=== PATIENT | female | born 1955 | race Caucasian/White ===

== ENCOUNTER 2017-03-14 12:27 | Observation (INO) | payer SELFPAY ==
[2017-03-14] VITALS (8 sets, daily range): BP systolic 158–174; BP diastolic 78–98; PULSE 75–89; RESP 16–20; TEMP 98–98.1; O2SAT 94–99
[~2017-03-14] VITALS: Ht 167.6 cm; Wt 92.0 kg
[~2017-03-14 12:27] MED LIST: BENZ100 PO; PRED20 PO; ZITH250T PO
[2017-03-14] MEDS ORDERED: ASPIRIN 325 MG TAB PO ONE (12:45)
[2017-03-14] MEDS ORDERED: SODIUM CHLORIDE 0.9% FLUSH 10 ML FLUSH IVF PRN (12:45)
--- NOTE | 2017-03-14 12:53 | PD ---
HPI Chief Complaint: Neuro Symptoms/ Deficits Time Seen by Provider: 12:43 Travel History International Travel<30 days: No Contact w/Intl Traveler<30days: No Traveled to known affect area: No History of Present Illness HPI Patient presents with complaints of left occipital headache for 3 days with onset of right facial drooping yesterday afternoon(20 hours ago). Denies extremity weakness. Admits to slurred speech. Denies any recent illness. Nondiabetic. She is a smoker. Positive family history for cardiac disease. No personal history of cardiac disease. PFSH Past Medical History Arthritis: No Blood Disorders: No Cancer: No Cardiovascular Problems: No Chemotherapy: No Cerebrovascular Accident: No Endocrine: No Genitourinary: No Headaches: No Immune Disorder: No Musculoskeletal: Yes Neurologic: Yes (SEIZURES) Psychiatric: No Reproductive: No Respiratory: No Migraines: No Radiation Therapy: No Seizures: Yes Past Surgical History AICD: No Arteriovenous Shunt: No Insulin Pump: No Joint Replacement: No Pacemaker: No Social History Alcohol Use: Yes ("COUPLE TIMES PER WEEK") Tobacco Use: Yes ("WHEN I DRINK") Substance Use: Yes Allergies-Medications (Allergen,Severity, Reaction): Coded Allergies: No Known Allergies (Verified , 12/30/14) Reported Meds & Prescriptions Reported Meds & Active Scripts Active Reported Amlodipine (Amlodipine Besylate) 5 Mg Tab 5 Mg PO DAILY Review of Systems General / Constitutional: No: Fever Eyes: No: Visual changes HENT: No: Headaches Cardiovascular: No: Chest Pain or Discomfort Respiratory: No: Shortness of Breath Gastrointestinal: No: Abdominal Pain Genitourinary: No: Dysuria Musculoskeletal: No: Pain Skin: No Rash Neurologic: No: Weakness Psychiatric: No: Depression Endocrine: No: Polydipsia Hematologic/Lymphatic: No: Easy Bruising Physical Exam Narrative GENERAL: [-] SKIN: Focused skin assessment warm/dry. HEAD: Atraumatic. Normocephalic. EYES: Pupils equal and round. No scleral icterus. No injection or drainage. ENT: No nasal bleeding or discharge. Mucous membranes pink and moist. NECK: Trachea midline. No JVD. CARDIOVASCULAR: Regular rate and rhythm. No murmur appreciated. RESPIRATORY: No accessory muscle use. Clear to auscultation. Breath sounds equal bilaterally. GASTROINTESTINAL: Abdomen soft, non-tender, nondistended. Hepatic and splenic margins not palpable. MUSCULOSKELETAL: No obvious deformities. No clubbing. No cyanosis. No edema. NEUROLOGICAL: Awake and alert. No obvious cranial nerve deficits. Vision intact , Ocular movement intact, able to raise eyebrows. Right oral drooping. Hearing intact. Motor grossly within normal limits. Good strength in all extremities. Sensation intact PSYCHIATRIC: Appropriate mood and affect; insight and judgment normal. Data Data Last Documented VS Vital Signs Date Time Temp Pulse Resp B/P (MAP) Pulse Ox O2 Delivery O2 Flow Rate FiO2 03/14/17 13:10 Room Air 03/14/17 12:45 98.0 78 18 158/91 (113) 03/14/17 12:40 98 Orders Orders Electrocardiogram (03/14/17 12:43) Complete Blood Count With Diff (03/14/17 12:43) Comprehensive Metabolic Panel (03/14/17 12:43) Urinalysis - C+S If Indicated (03/14/17 12:43) Ct Brain W/O Iv Contrast(Rout) (03/14/17 12:43) Ecg Monitoring (03/14/17 12:43) Iv Access Insert/Monitor (03/14/17 12:43) Oximetry (03/14/17 12:43) Aspirin (Aspirin) (03/14/17 12:45) Sodium Chloride 0.9% Flush (Ns Flush) (03/14/17 12:45) Acetaminophen (Tylenol) (03/14/17 13:30) Place In Observation (03/14/17 ) Vital Signs (Adult) Q4H (03/14/17 14:07) Diet Regular Basic (03/14/17 Dinner) Sodium Chloride 0.9% Flush (Ns Flush) (03/14/17 14:15) Sodium Chloride 0.9% Flush (Ns Flush) (03/14/17 21:00) Acetaminophen (Tylenol) (03/14/17 14:15) Ondansetron Inj (Zofran Inj) (03/14/17 14:15) Naloxone Inj (Narcan Inj) (03/14/17 14:15) Docusate Sodium-Senna (Shantell-Colace) (03/14/17 21:00) Magnesium Hydroxide Liq (Milk Of Magnesi (03/14/17 14:15) Sennosides (Senokot) (03/14/17 14:15) Bisacodyl Supp (Dulcolax Supp) (03/14/17 14:15) Lactulose Liq (Lactulose Liq) (03/14/17 14:15) Mri Brain W/O Contrast (03/14/17 ) Admit Order (Ed Use Only) (03/14/17 ) Vital Signs (Adult) Q4H (03/14/17 14:11) Activity Bed Rest With Brp (03/14/17 14:11) ^ Saline Lock (03/14/17 14:11) Resp Oxygen Luis C Titrat 1-4 L (03/14/17 ) Notify Dr: Other (03/14/17 14:11) Neuro Checks . ORDERED (03/14/17 14:11) Labs Laboratory Tests Test 03/14/17 12:41 White Blood Count 4.5 TH/MM3 Red Blood Count 3.59 MIL/MM3 Hemoglobin 12.2 GM/DL Hematocrit 35.6 % Mean Corpuscular Volume 99.1 FL Mean Corpuscular Hemoglobin 34.0 PG Mean Corpuscular Hemoglobin Concent 34.3 % Red Cell Distribution Width 13.4 % Platelet Count 52 TH/MM3 Mean Platelet Volume 8.4 FL Neutrophils (%) (Auto) 46.3 % Lymphocytes (%) (Auto) 40.1 % Monocytes (%) (Auto) 8.6 % Eosinophils (%) (Auto) 3.5 % Basophils (%) (Auto) 1.5 % Neutrophils # (Auto) 2.0 TH/MM3 Lymphocytes # (Auto) 1.8 TH/MM3 Monocytes # (Auto) 0.4 TH/MM3 Eosinophils # (Auto) 0.2 TH/MM3 Basophils # (Auto) 0.1 TH/MM3 CBC Comment AUTO DIFF Differential Comment AUTO DIFF CONFIRMED Platelet Estimate LOW Platelet Morphology Comment NORMAL Blood Urea Nitrogen 8 MG/DL Creatinine 0.71 MG/DL Random Glucose 119 MG/DL Total Protein 9.0 GM/DL Albumin 3.4 GM/DL Calcium Level 8.2 MG/DL Alkaline Phosphatase 143 U/L Aspartate Amino Transf (AST/SGOT) 44 U/L Alanine Aminotransferase (ALT/SGPT) 31 U/L Total Bilirubin 0.8 MG/DL Sodium Level 137 MEQ/L Potassium Level 3.5 MEQ/L Chloride Level 106 MEQ/L Carbon Dioxide Level 23.3 MEQ/L Anion Gap 8 MEQ/L Estimat Glomerular Filtration Rate 84 ML/MIN MDM Medical Decision Making Medical Screen Exam Complete: Yes Emergency Medical Condition: Yes Differential Diagnosis TIA, CVA, Blackmon's palsy, cephalgia Narrative Course Assessment and plan discussed with patient at bedside. EKG reveals sinus rhythm rate of 77. Last [address] 03/14/17 1243 Signed Impressions: Service Date/Time: Tuesday, March 14, 2017 13:02 - CONCLUSION: Calcified mass left frontal region, chronic Demetrius Salgado MD FACR Thrombocytopenia noted Physician Communication Physician Communication Spoke with Dr. Saravia who is in agreement will admit Diagnosis Primary Impression: Thrombocytopenia Additional Impressions: Facial asymmetry Cephalgia Qualified Codes: G44.201 - Tension-type headache, unspecified, intractable Marvel Nettles MD Mar 14, 2017 12:53
[2017-03-14 12:58] LABS: BASOPHIL # 0.1 TH/MM3 (0-0.2); BASOPHIL % 1.5 % (0.0-2.0); EOSINOPHIL # 0.2 TH/MM3 (0-0.4); EOSINOPHIL % 3.5 % (0.0-4.0); HEMATOCRIT 35.6 % (35.0-46.0); LYMPH % 40.1 % (9.0-44.0); LYMPHOCYTE # 1.8 TH/MM3 (1.0-4.8); MEAN CELL VOLUME 99.1 FL (80.0-100.0); MEAN CORPUSCULAR HGB CONC 34.3 % (32.0-36.0); MONO % 8.6 % (0.0-8.0); NEUT % 46.3 % (16.0-70.0); RED BLOOD COUNT 3.59 MIL/MM3 (4.00-5.30); RED CELL DISTRIBUTION WIDTH 13.4 % (11.6-17.2); WHITE BLOOD COUNT 4.5 TH/MM3 (4.0-11.0)
[2017-03-14 13:04] LABS: CHLORIDE 106 MEQ/L (98-107); POTASSIUM 3.5 MEQ/L (3.5-5.1); SODIUM (NA) 137 MEQ/L (136-145)
[2017-03-14 13:08] LABS: ANION GAP 8 MEQ/L (5-15); BICARBONATE 23.3 MEQ/L (21.0-32.0); BLOOD UREA NITROGEN 8 MG/DL (7-18)
[2017-03-14 13:11] LABS: ALT (GPT) 31 U/L (10-53); AST (GOT) 44 U/L (15-37); GLOMERULAR FILTRATION RATE 84 ML/MIN (>89)
[2017-03-14 13:13] LABS: TOTAL BILIRUBIN ADULT 0.8 MG/DL (0.2-1.0)
[2017-03-14 13:14] LABS: ALKALINE PHOSPHATASE 143 U/L (45-117)
--- NOTE | 2017-03-14 13:15 | RADRPT ---
EXAM DATE/TIME: 03/14/2017 13:02 [facility] COMPARISON: No previous studies available for comparison. INDICATIONS : Left sided facial drooping. RADIATION DOSE: 62.11 CTDIvol (mGy) MEDICAL HISTORY : Seizures. SURGICAL HISTORY : None. ENCOUNTER: Initial ACUITY: 2 days PAIN SCALE: 0/10 LOCATION: Left cranial TECHNIQUE: Multiple contiguous axial images were obtained of the head. Using automated exposure control and adjustment of the mA and/or kV according to patient size, radiation dose was kept as low as reasonably achievable to obtain optimal diagnostic quality images. DICOM format image data is av ailable electronically for review and comparison. FINDINGS: CEREBRUM: Calcified mass is seen in the left frontal region. This could be remnants of old traum a or infection. Ventricle size is appropriate. There's no parenchymal hemorrhage. POSTERIOR FOSSA: The cerebellum and brainstem are intact. The 4th ventricle is midline. The cer ebellopontine angle is unremarkable. EXTRACRANIAL: The visualized portion of the orbits is intact. SKULL: The calvaria is intact. No evidence of skull fracture. CONCLUSION: Calcified mass left frontal region, chronic Demetrius Salgado MD FACR on March 14, 2017 at 13:12 Board Certified Radiologist. This report was verified electronically.
[2017-03-14] MEDS ORDERED: AMLO5TAB2 PO (13:18)
[2017-03-14] MEDS ORDERED: ACETAMINOPHEN 325 MG TAB PO ONE (13:30)
[2017-03-14 13:45] LABS: HEMO FLAGS AUTO DIFF; PLATELET COUNT 52 TH/MM3 (150-450); PLATELET ESTIMATE SMEAR LOW (NORMAL); PLATELET MORPHOLOGY NORMAL (NORMAL)
[2017-03-14 13:46] LABS: SCAN/DIFF AUTO DIFF CONFIRMED
[2017-03-14] MEDS ORDERED: ACETAMINOPHEN 325 MG TAB PO PRN (14:15)
[2017-03-14] MEDS ORDERED: ONDANSETRON HCL 4 MG/2 ML VIAL IVP PRN (14:15)
[2017-03-14] MEDS ORDERED: LACTULOSE SYRUP 20 GM/30 ML CUP PO PRN (14:15)
[2017-03-14] MEDS ORDERED: SODIUM CHLORIDE 0.9% FLUSH 10 ML FLUSH IV FLUSH PRN (14:15)
[2017-03-14] MEDS ORDERED: NALOXONE HCL 0.4 MG/ML AMP IV PRN (14:15)
[2017-03-14] MEDS ORDERED: SENNOSIDES 8.6 MG TAB PO PRN (14:15)
[2017-03-14] MEDS ORDERED: BISACODYL 10 MG SUPP RECTAL PRN (14:15)
[2017-03-14] MEDS ORDERED: MAGNESIUM HYDROXIDE SUSP 30 ML CUP PO PRN (14:15)
[2017-03-14] MEDS ORDERED: GADODIAMIDE PF 287 MG/ML 20 ML VIAL (for RAD MRI) IVCONTRAST ONE (14:17)
[2017-03-14 14:34] LABS: GLUCOSE,URINE NEG (NEG); KETONE, URINE NEG (NEG); NITRITE,URINE NEG (NEG); PH, URINE 5.5 (5.0-8.5)
[2017-03-14 14:35] LABS: BLOOD, URINE TRACE (NEG)
[2017-03-14 14:40] LABS: METHOD OF COLLECTION CLEAN CATCH; URINE COLOR YELLOW (YELLW/STRAW)
[2017-03-14 14:41] LABS: COMMENT (UR) CULT NOT INDICATED; CULTURE IF INDICATED CULT NOT INDICATED; RBC, URINE 0-3 /hpf (0-3); SQUAMOUS EPITHELIAL CELL URINE 0-5 /hpf (0-5)
--- NOTE | 2017-03-14 14:54 | HHI.HP ---
[facility] Service [place] [facility] Primary Care Physician No Primary Care Physician Admission Diagnosis thrombocytopenia, cephalgia, facial droop Diagnoses: Chief Complaint: Facial droop Travel History International Travel<30 Days: No Contact w/Intl Traveler <30 Da: No Traveled to Known Affected Are: No History of Present Illness Patient is a 61-year-old female with a known history of alcoholic liver disease as well as probable hepatitis C. Patient had an association of left facial droop yesterday with associated headache for 3 days. Patient says she's never has migraines but the pain was so bad she took a lidocaine patch which was her and then noticed her face went numb. Which would merit was corrected and so she came to the emergency room today after the symptoms did not improve Review of Systems Constitutional: DENIES: Diaphoretic episodes, Fatigue, Fever, Weight gain, Weight loss, Chills, Dizziness, Change in appetite, Night Sweats Endocrine: DENIES: Abnorml menstrual pattern, Heat/cold intolerance, Polydipsia , Polyuria, Polyphagia Eyes: DENIES: Blurred vision, Diplopia, Eye inflammation, Eye pain, Vision loss , Photosensitivity, Double Vision Ears, nose, mouth, throat: DENIES: Tinnitus, Hearing loss, Vertigo, Nasal discharge, Oral lesions, Throat pain, Hoarseness, Ear Pain, Running Nose, Epistaxis, Sinus Pain, Toothache, Odynophagia Respiratory: DENIES: Apneas, Cough, Snoring, Wheezing, Hemoptysis, Sputum production, Shortness of breath Cardiovascular: DENIES: Chest pain, Palpitations, Syncope, Dyspnea on Exertion , PND, Lower Extremity Edema, Orthopnea, Claudication Gastrointestinal: DENIES: Abdominal pain, Black stools, Bloody stools, Constipation, Diarrhea, Nausea, Vomiting, Difficulty Swallowing, Anorexia Genitourinary: DENIES: Abnormal vaginal bleeding, Dysmenorrhea, Dyspareunia, Sexual dysfunction, Urinary frequency, Urinary incontinence, Urgency, Hematuria , Dysuria, Nocturia, Vaginal discharge Musculoskeletal: DENIES: Joint pain, Muscle aches, Stiffness, Joint Swelling, Back pain, Neck pain Integumentary: DENIES: Abnormal pigmentation, Pruritus, Rash, Nail changes, Breast masses, Breast skin changes, Nipple discharge Hematologic/lymphatic: DENIES: Bruising, Lymphadenopathy Immunologic/allergic: DENIES: Eczema, Urticaria Neurologic: DENIES: Abnormal gait, Headache, Localized weakness, Paresthesias, Seizures, Speech Problems, Tremor, Poor Balance Psychiatric: DENIES: Anxiety, Confusion, Mood changes, Depression, Hallucinations, Agitation, Suicidal Ideation, Homicidal Ideation, Delusions Except as stated in HPI: all other systems reviewed are Neg Past Family Social History Past Medical History History of seizures several years ago and related to an intracranial bleed Hypertension Cardiomyopathy EF of 40% Past Surgical History Reported Medications Reviewed in the medical record, nothing new Allergies: Coded Allergies: No Known Allergies (Verified , 12/30/14) Active Ordered Medications Reviewed in the medical record Family History Diabetes mellitus type 2 and her father and her mother Father at 64 with sudden heart failure Social History smokes 1/2 ppd for 50 yrs drinks 6 beers daily Physical Exam Vital Signs Vital Signs Date Time Temp Pulse Resp B/P (MAP) Pulse Ox O2 Delivery O2 Flow Rate FiO2 03/14/17 13:10 Room Air 03/14/17 12:45 98.0 78 18 158/91 (113) Room Air 03/14/17 12:40 98.1 85 18 158/91 (113) 98 Physical Exam GENERAL: This is a well-nourished, well-developed patient, in no apparent distress. SKIN: Diffuse telangiectasias and dusky appearance HEAD: Atraumatic. Normocephalic. No temporal or scalp tenderness. EYES: Pupils equal round and reactive. Extraocular motions intact. No scleral icterus. No injection or drainage. ENT: Nose without bleeding, purulent drainage or septal hematoma. Throat without erythema, tonsillar hypertrophy or exudate. Uvula midline. Airway patent. NECK: Trachea midline. No JVD or lymphadenopathy. Supple, nontender, no meningeal signs. CARDIOVASCULAR: Regular rate and rhythm without murmurs, gallops, or rubs. RESPIRATORY: Clear to auscultation. Breath sounds equal bilaterally. No wheezes , rales, or rhonchi. GASTROINTESTINAL: Abdomen soft, non-tender, moderately distended. No hepato- splenomegaly, or palpable masses. No guarding. MUSCULOSKELETAL: Extremities without clubbing, cyanosis, or edema. No joint tenderness, effusion, or edema noted. No calf tenderness. Negative Homans sign bilaterally. NEUROLOGICAL: Left facial droop, awake and alert. Motor and sensory grossly within normal limits. Five out of 5 muscle strength in all muscle groups. Normal speech. Laboratory Laboratory Tests Test 03/14/17 12:41 03/14/17 14:18 White Blood Count 4.5 Red Blood Count 3.59 Hemoglobin 12.2 Hematocrit 35.6 Mean Corpuscular Volume 99.1 Mean Corpuscular Hemoglobin 34.0 Mean Corpuscular Hemoglobin Concent 34.3 Red Cell Distribution Width 13.4 Platelet Count 52 Mean Platelet Volume 8.4 Neutrophils (%) (Auto) 46.3 Lymphocytes (%) (Auto) 40.1 Monocytes (%) (Auto) 8.6 Eosinophils (%) (Auto) 3.5 Basophils (%) (Auto) 1.5 Neutrophils # (Auto) 2.0 Lymphocytes # (Auto) 1.8 Monocytes # (Auto) 0.4 Eosinophils # (Auto) 0.2 Basophils # (Auto) 0.1 CBC Comment AUTO DIFF Differential Comment AUTO DIFF CONFIRMED Platelet Estimate LOW Platelet Morphology Comment NORMAL Blood Urea Nitrogen 8 Creatinine 0.71 Random Glucose 119 Total Protein 9.0 Albumin 3.4 Calcium Level 8.2 Alkaline Phosphatase 143 Aspartate Amino Transf (AST/SGOT) 44 Alanine Aminotransferase (ALT/SGPT) 31 Total Bilirubin 0.8 Sodium Level 137 Potassium Level 3.5 Chloride Level 106 Carbon Dioxide Level 23.3 Anion Gap 8 Estimat Glomerular Filtration Rate 84 Urine Collection Type CLEAN CATCH Urine Color YELLOW Urine Turbidity CLEAR Urine pH 5.[address] 1.006 Urine Protein NEG Urine Glucose (UA) NEG Urine Ketones NEG Urine Occult Blood TRACE Urine Nitrite NEG Urine Bilirubin NEG Urine Leukocyte Esterase NEG Urine RBC 0-3 Urine Squamous Epithelial Cells 0-5 Urine Amorphous Sediment FEW Microscopic Urinalysis Comment CULT NOT INDICATED Urine Collection Time 1618 Result Diagram: 03/14/17 1241 03/14/17 1241 Imaging Last Impressions Head CT 03/14/17 1243 Signed Impressions: Service Date/Time: Tuesday, March 14, 2017 13:02 - CONCLUSION: Calcified mass left frontal region, chronic Demetrius Salgado MD FACR Capmontrelli VTE Risk Assessment Caprini VTE Risk Assessment: Mod/High Risk (score >= 2) VTE Pharm Contraindication: End Stage Liver Disease Caprini Risk Assessment Model Point Value = 1 Point Value = 2 Point Value = 3 Point Value = 5 Age 41-60 Minor surgery BMI > 25 kg/m2 Swollen legs Varicose veins or History of unexplained or recurrent spontaneous Oral contraceptives or hormone replacement Sepsis (< 1 month) Serious lung disease, including pneumonia (< 1 month) Abnormal pulmonary function Acute myocardial infarction Congestive heart failure (< 1 month) History of inflammatory bowel disease Medical patient at bed rest Age 61-74 Arthroscopic surgery Major open surgery (> 45 min) Laparoscopic surgery (> 45 min) Malignancy Confined to bed (> 72 hours) Immobilizing plaster cast Central venous access Age >= 75 History of VTE Family history of VTE Factor V Leiden Prothrombin [id number] Lupus anticoagulant Anticardiolipin antibodies Elevated serum homocysteine Heparin-induced thrombocytopenia Other congenital or acquired thrombophilia Stroke (< 1 month) Elective arthroplasty Hip, pelvis, or leg fracture Acute spinal cord injury (< 1 month) Prophylaxis Regimen Total Risk Factor Score Risk Level Prophylaxis Regimen 0-1 Low Early ambulation 2 Moderate Order ONE of the following: *Sequential Compression Device (SCD) *Heparin 5000 units SQ BID 3-4 Higher Order ONE of the following medications: *Heparin 5000 units SQ TID *Enoxaparin/Lovenox 40 mg SQ daily (WT < 150 kg, CrCl > 30 mL/min) *Enoxaparin/Lovenox 30 mg SQ daily (WT < 150 kg, CrCl > 10-29 mL/min) *Enoxaparin/Lovenox 30 mg SQ BID (WT < 150 kg, CrCl > 30 mL/min) AND/OR *Sequential Compression Device (SCD) 5 or more Highest Order ONE of the following medications: *Heparin 5000 units SQ TID (Preferred with Epidurals) *Enoxaparin/Lovenox 40 mg SQ daily (WT < 150 kg, CrCl > 30 mL/min) *Enoxaparin/Lovenox 30 mg SQ daily (WT < 150 kg, CrCl > 10-29 mL/min) *Enoxaparin/Lovenox 30 mg SQ BID (WT < 150 kg, CrCl > 30 mL/min) AND *Sequential Compression Device (SCD) Assessment and Plan Problem List: (1) Transaminitis ICD Code: R74.0 - Nonspecific elevation of levels of transaminase and lactic acid dehydrogenase [LDH] Plan: likely due to EtOH ct pending hx of Hep C (2) Cephalgia ICD Code: R51 - Headache Status: Acute Plan: Continue pain management CT of the head does show frontal mass which is likely related to previous bleed in the brain (3) Thrombocytopenia ICD Code: D69.6 - Thrombocytopenia, unspecified Status: Acute Plan: Likely due to chronic liver disease We'll follow up closely We'll check coagulation profile and no evidence of active bleeding at this point (4) Facial asymmetry ICD Code: Q67.0 - Congenital facial asymmetry Status: Acute Plan: 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
[2017-03-14] MEDS ORDERED: DIATRIZOATE MEGLUM/DIATRIZOATE SOD 9 ML CUP ONE (15:13)
[2017-03-14 15:23] LABS: APTT (PATIENT) 29.4 SEC (24.3-30.1); INTERNATIONAL NORMALIZED RATIO 1.4 RATIO; PROTHROMBIN TIME - PATIENT 15.9 SEC (9.8-11.6)
[2017-03-14] MEDS ORDERED: DIATRIZOATE MEGLUM/DIATRIZOATE SOD 9 ML CUP PO ONE (16:30)
--- NOTE | 2017-03-14 16:45 | RADRPT ---
EXAM DATE/TIME: 03/14/2017 16:31 [facility] COMPARISON: No previous studies available for comparison. INDICATIONS : Abnormal liver enzymes. ORAL CONTRAST: Prescribed oral contrast ingested. RADIATION DOSE: 21.64 CTDIvol (mGy) MEDICAL HISTORY : Seizures. Hypertension. SURGICAL HISTORY : section. ENCOUNTER: Initial ACUITY: 1 day PAIN SCALE: 0/10 LOCATION: abdomen TECHNIQUE: Volumetric scanning of the abdomen and pelvis was performed. Using automated exposure control and ad justment of the mA and/or kV according to patient size, radiation dose was kept as low as reasonably achievable to obtain optimal diagnostic quality images. DICOM format image data is available electro nically for review and comparison. FINDINGS: The lung base is are clear. The liver is normal size and free of focal defects. There is very minimal nodularity pleasant. The spleen pancreas and adrenal glands unremarkable There are no renal stones. There is no lytic peritoneal adenopathy Scattered diverticula are seen in the pelvis without diverticulitis There is is small umbilical hernia. Review of bone windows reveals only degenerative changes. CONCLUSION: Normal size but somewhat nodular liver suggesting cirrhosis. Normal size spleen. Small umbilical hernia. Demetrius Salgado MD FACR on March 14, 2017 at 16:42 Board Certified Radiologist. This report was verified electronically.
--- NOTE | 2017-03-14 16:57 | RADRPT ---
EXAM DATE/TIME: 03/14/2017 16:20 [place] Corrected on: March 14, 2017; [facility] COMPARISON: CT BRAIN W/O CONTRAST, March 14, 2017, 13:02. INDICATIONS : Mass. Left facial droop. CONTRAST: 18 cc Omniscan (gadodiamide) IV MEDICAL HISTORY : Hypertension. SURGICAL HISTORY : section. ENCOUNTER: Initial ACUITY: 1 day PAIN SCORE: 0/10 LOCATION: cranial TECHNIQUE: Multiplanar, multisequence MRI of the brain was performed both prior to and following the administrat ion of paramagnetic contrast. FINDINGS: CEREBRUM: Again seen is the calcified mass in the left shoulder region without edema. There are minimal perive ntricular white matter changes evident. There is no extra-axial fluid appreciated. There is no rest ricted diffusion. Ventricle size is appropriate Following intravenous administration of gadolinium there is no significant abnormal contrast enh ancement. Subtle enhancement within and around this calcified mass in the left orbital region. Lack of an edema would favor benign process. POSTERIOR FOSSA: The cerebellum and brainstem are intact. The 4th ventricle is midline. The cerebellopontine angle is unremarkable. The cerebellar tonsils are normal in position. EXTRACRANIAL: The visualized portions of the orbits and paranasal sinuses are unremarkable. CONCLUSION: Abnormality left frontal region densely calcified with possible subtle enhancement. This is nonspecific with no surrounding edema to suggest an aggressive process. This would be an aty pical appearance for a calcified partially thrombosed AVM. Demetrius Salgado MD FACR on March 14, 2017 at 16:44 Board Certified Radiologist. This report was verified electronically. Demetrius Salgado MD FACR on March 14, 2017 at 18:01 Board Certified Radiologist. This report was verified electronically.
[2017-03-14] MEDS: HYDROmorphone HCL PF 1 MG/ML VIAL IV PUSH PRN ×2 (17:31→22:51)
[2017-03-14] MEDS: DOCUSATE SODIUM 50 MG/SENNA 8.6 MG TAB PO SCH (20:33)
[2017-03-14] MEDS: SODIUM CHLORIDE 0.9% FLUSH 10 ML FLUSH IV FLUSH SCH (20:33)
[2017-03-15] VITALS: BP 153/92; PULSE 80; RESP 22; TEMP 98; O2SAT 99
[2017-03-15 08:00] VITALS: BP 174/110; PULSE 93; RESP 20; TEMP 97.9; O2SAT 96
[2017-03-15] MEDS: DOCUSATE SODIUM 50 MG/SENNA 8.6 MG TAB PO SCH (08:51)
[2017-03-15] MEDS: SODIUM CHLORIDE 0.9% FLUSH 10 ML FLUSH IV FLUSH SCH (08:52)
[2017-03-15] MEDS: HYDROmorphone HCL PF 1 MG/ML VIAL IV PUSH PRN (08:53)
[2017-03-15 09:23] VITALS: RESP 18
[2017-03-15 10:05] LABS: CHLORIDE 102 MEQ/L (98-107); POTASSIUM 3.4 MEQ/L (3.5-5.1); SODIUM (NA) 136 MEQ/L (136-145)
[2017-03-15 10:09] LABS: ANION GAP 8 MEQ/L (5-15); BICARBONATE 25.7 MEQ/L (21.0-32.0); BLOOD UREA NITROGEN 9 MG/DL (7-18)
[2017-03-15 10:12] LABS: ALT (GPT) 31 U/L (10-53); AST (GOT) 43 U/L (15-37); GLOMERULAR FILTRATION RATE 84 ML/MIN (>89)
[2017-03-15 10:14] LABS: TOTAL BILIRUBIN ADULT 1.4 MG/DL (0.2-1.0)
[2017-03-15 10:15] LABS: ALKALINE PHOSPHATASE 106 U/L (45-117)
[2017-03-15] MEDS ORDERED: CELE10TA PO (10:58)
--- NOTE | 2017-03-15 10:59 | HHI.DCPOC ---
Discharge Care Plan Diagnosis: (1) Blackmon palsy (2) Depression Goals to Promote Your Health * To prevent worsening of your condition and complications * To maintain your health at the optimal level Directions to Meet Your Goals Take your medications as prescribed Follow your dietary instruction Follow activity as directed Keep your appointments as scheduled Take your immunizations and boosters as scheduled If your symptoms worsen call your PCP, if no PCP go to Urgent Care Center or Emergency Room Smoking is Dangerous to Your Health. Avoid second hand smoke Call the 24-hour hour crisis hotline for domestic abuse at Ana Saravia MD Mar 15, 2017 10:59
--- NOTE | 2017-03-15 11:01 | HHI.DS ---
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 Patient had an association of left facial droop yesterday with associated headache for 3 days. Patient says she's never has migraines but the pain was so bad she took a lidocaine patch which was her and then noticed her face went numb. Which would merit was corrected and so she came to the emergency room today after the symptoms did not improve CBC/BMP: 03/14/17 1241 03/15/17 0948 Significant Findings Laboratory Tests Test 03/14/17 12:41 03/14/17 14:18 03/14/17 14:40 03/14/17 17:05 Red Blood Count 3.59 MIL/MM3 (4.00-5.30) Platelet Count 52 TH/MM3 (150-450) Monocytes (%) (Auto) 8.6 % (0.0-8.0) Platelet Estimate LOW (NORMAL) Random Glucose 119 MG/DL (74-106) Total Protein 9.0 GM/DL (6.4-8.2) Calcium Level 8.2 MG/DL (8.5-10.1) Alkaline Phosphatase 143 U/L (45-117) Aspartate Amino Transf (AST/SGOT) 44 U/L (15-37) Estimat Glomerular Filtration Rate 84 ML/MIN (>89) Prothrombin Time 15.9 SEC (9.8-11.6) Test 03/15/17 09:48 Random Glucose 155 MG/DL (74-106) Total Protein 8.9 GM/DL (6.4-8.2) Calcium Level 8.2 MG/DL (8.5-10.1) Aspartate Amino Transf (AST/SGOT) 43 U/L (15-37) Total Bilirubin 1.4 MG/DL (0.2-1.0) Potassium Level 3.4 MEQ/L (3.5-5.1) Estimat Glomerular Filtration Rate 84 ML/MIN (>89) Imaging Last Impressions Head CT 03/14/17 1243 Signed Impressions: Service Date/Time: Tuesday, March 14, 2017 13:02 - CONCLUSION: Calcified mass left frontal region, chronic Demetrius Salgado MD FACR Brain MRI 03/14/17 0000 Signed Impressions: Service Date/Time: Tuesday, March 14, 2017 16:20 - CONCLUSION: Abnormality left frontal region densely calcified with possible subtle enhancement. This is nonspecific with no surrounding edema to suggest an aggressive process. This would be an atypical appearance for a calcified partially thrombosed AVM. Demetrius Salgado MD FACR Abdomen/Pelvis CT 03/14/17 0000 Signed Impressions: Service Date/Time: Tuesday, March 14, 2017 16:31 - CONCLUSION: Normal size but somewhat nodular liver suggesting cirrhosis. Normal size spleen. Small umbilical hernia. Demetrius Salgado MD FACR PE at Discharge Diffuse telangiectasias and dusky appearance of the lower extremity GENERAL: This is a well-nourished, well-developed patient, in no apparent distress. CARDIOVASCULAR: Regular rate and rhythm without murmurs, gallops, or rubs. RESPIRATORY: Clear to auscultation. Breath sounds equal bilaterally. No wheezes , rales, or rhonchi. GASTROINTESTINAL: Obese but Abdomen soft, non-tender, nondistended. Normal active bowel sounds MUSCULOSKELETAL: Extremities without clubbing, cyanosis, or edema. NEURO: Alert & Oriented x4 to person, place, time, situation. Moves all ext x4 Hospital Course Patient is a 61-year-old female with a known history of alcohol dependency who came in complaining of headache and facial asymmetry. 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 Patient did have some complaints of abdominal discomfort is no evidence increasing skin vascular lesions which are multiple telangiectasias. Her platelets were low and the patient does have evidence of cirrhosis by imaging. Is not evidence of ascites and abdomen is soft and tender. Patient is advised to discontinue alcohol. She started on Celexa for depression and we'll continue to follow up with her primary care physician Pt Condition on Discharge: Good Discharge Disposition: Discharge Home Discharge Time: <= 30 minutes Discharge Instructions DIET: Follow Instructions for: As Tolerated, No Restrictions Activities you can perform: Regular-No Restrictions Follow up Referrals: PCP Follow-up - 1 Week New Medications: Citalopram (Celexa) 10 Mg Tab 10 MG PO DAILY for Control Depression, #30 TAB 0 Refills Continued Medications: Amlodipine (Amlodipine) 5 Mg Tab 5 MG PO DAILY for Blood Pressure Management, #30 TAB 0 Refills Ana Saravia MD Mar 15, 2017 11:01
--- NOTE | 2017-03-15 20:19 | EKG ---
Date Performed: 03/14/2017 Time Performed: 12:51:00 PTAGE: 61 years EKG: Sinus rhythm NORMAL ECG PREVIOUS TRACING : 03/01/2003 19.14 DOCTOR: Kasandra Roy Interpretating Date/Time 03/15/2017 20:16:07
--- NOTE | 2017-03-15 20:40 | ECHRPT ---
Indication: cardiomyopathy CONCLUSIONS The left ventricular systolic function is normal with an estimated ejection fraction in the range of 55-60%. Normal left ventricular size. No regional wall motion abnormalities are present. Trace mitral valve regurgitation. The mitral valve area by Pressure Halftime Method is __3.3 cm. There is mild tricuspid valve regurgitation. The pulmonary valve is not well visualized. BP: / HR: Rhythm: MEASUREMENTS (Male / Female) Normal Values Technical Quality: 2D ECHO LV Diastolic Diameter PLAX 4.8 cm 4.2 - 5.9 / 3.9 - 5.3 cm LV Systolic Diameter PLAX 3.7 cm IVS Diastolic Thickness 1.2 cm 0.6 - 1.0 / 0.6 - 0.9 cm LVPW Diastolic Thickness 1.0 cm 0.6 - 1.0 / 0.6 - 0.9 cm LV Relative Wall Thickness 0.5 RV Internal Dim ED PLAX 3.2 cm M-MODE Aortic Root Diameter MM 2.7 cm LA Systolic Diameter MM 4.4 cm LA Ao Ratio MM 1.6 AV Cusp Separation MM 1.8 cm DOPPLER MV Area PHT 2.1 cm LV E' Lateral Velocity 7.7 cm/s LV E' Septal Velocity 6.5 cm/s TR Peak Velocity 239.0 cm/s TR Peak Gradient 22.8 mmHg FINDINGS LEFT VENTRICLE The left ventricular systolic function is normal with an estimated ejection fraction in the range of 55-60%. Normal left ventricular size. No regional wall motion abnormalities are present. RIGHT VENTRICLE Normal right ventricular size and systolic function. LEFT ATRIUM The left atrial size is normal. RIGHT ATRIUM The right atrial size is normal. ATRIAL SEPTUM Normal atrial septal thickness without atrial level shunting by limited color doppler interrogation. AORTA The aortic root and proximal ascending aorta are normal in size on limited imaging. MITRAL VALVE Structurally normal mitral valve. Trace mitral valve regurgitation. The mitral valve area by Pressure Halftime Method is __3.3 cm. AORTIC VALVE Trileaflet aortic valve. No aortic valve stenosis or regurgitation. TRICUSPID VALVE Structurally normal tricuspid valve. There is mild tricuspid valve regurgitation. PULMONARY VALVE The pulmonary valve is not well visualized. VESSELS The inferior vena cava is normal in size. PERICARDIUM No pericardial effusion. Merlin Tarango MD, FACC, [facility] [place] (Electronically Signed) Final Date:15 March 2017 20:39
== END 2017-03-15 12:54 | disposition home or self-care (01) ==
LOC: PHED 12:27 → PHEDA 14:16 → PH3B 18:17
PROVIDERS: ADMIT Hospitalist; ATTEND Hospitalist
DX: D69.6 Thrombocytopenia, unspecified (principal); Q67.0 Congenital facial asymmetry; R74.0 Nonspecific elevation of levels of transaminase and lactic acid dehydrogenase [LDH]; K70.40 Alcoholic hepatic failure without coma; G51.0 Bell's palsy; K74.60 Unspecified cirrhosis of liver; F32.9 Major depressive disorder, single episode, unspecified; I42.9 Cardiomyopathy, unspecified; I10 Essential (primary) hypertension
CPT/HCPCS: 70450; 70553; 74176; 80053; 80074; 81001; 85025; 85610; 85730; 93005; 93306; 96374; 96376; 99285; A9579; G0378; J1170; Q9963